=== PATIENT | male | born 1960 | race Caucasian/White ===

== ENCOUNTER → 2016-12-29 | Outpatient (CLI) | payer BC ==
--- NOTE | ~2016-12-29 | XA30 ---
[facility] A Service of [facility] RADIOLOGY TEXT RESULTS PATIENT: AMADO PURI LOCATION: CIVR : 60 UNIT #: [id number] AGE: [address]: Watson Davis MD SEX: M ORDER DR: [id number] [facility]. [place], [place] [address] [id number] O MR#: [id number] Acc #: [id number] NAME: AMADO PURI : 1960 SEX: M STUDY DATE/TIME: 12/29/2016 13:49 UNIT: CIVR ROOM: STUDY DESCRIPTION: XA Arthrocentesis Major Joint Attending Physician: Watson Davis M.D. Referring Physician: Watson Davis M.D. Ordering Physician: Watson Davis M.D. Primary Care Physician: Juliet Welsh M.D. MEDICAL IMAGING REPORT This report is preliminary unless electronic signature is present EXAM Left hip injection with Depo-Medrol and Marcaine. HISTORY Left hip pain. PROCEDURE Informed consent was obtained, and a skin site was selected with fluoroscopic guidance. 0.4 minutes of fluoroscopy utilized with a single spot image. After sterile prepping, draping, and local anesthesia, a 22-gauge spinal needle was advanced into the left hip joint. After injection of a tiny amount of contrast confirmed intraarticular needle position, about 40 mg of Depo-Medrol with 3 mL of Marcaine were injected. There were no complications, and the patient tolerated the procedure well IMPRESSION Technically successful fluoroscopically-guided left hip injection with Depo-Medrol and Marcaine. Patient reports a preprocedure pain level of 5/10 and postprocedure pain level of 2/10. Dictated by... Geoff Bolaños M.D. THIS IS AN ELECTRONICALLY VERIFIED REPORT Geoff Bolaños M.D. at 12/30/2016 4:04 PM TEV/rex [facility] A Service of [facility] RADIOLOGY TEXT RESULTS PATIENT: AMADO PURI LOCATION: [facility] #: [id number] : 60 UNIT #: [id number] AGE: [address]: Watson Davis MD SEX: M ORDER DR: TD: 12/30/2016 11:58 JOB #: [id number] MEDICAL IMAGING REPORT Page 1 of 1 COPY
== END | disposition home or self-care (01) ==
LOC: CIVR 13:36
DX: M25.552 Pain in left hip (principal)
CPT/HCPCS: 77002; J1030; Q9967